=== PATIENT | female | born 1940 | race Caucasian/White ===

== ENCOUNTER 2017-07-24 10:16 | Day surgery (SDC) | payer MEDICARE, OTHER ==
[~2017-07-24] VITALS: Ht 157.5 cm; Wt 69.5 kg
[~2017-07-24 10:16] MED LIST: DONE10TA7 PO; ESOM40CA PO; GLUC-111 PO; LEVE250T5 PO; RANI150T8 PO; SERT100T PO; TIZA2TAB PO
[2017-07-24] MEDS ORDERED: LACTATED RINGERS 1,000 ML IV SCH (10:39)
[2017-07-24 10:42] VITALS: BP 150/84
[2017-07-24] MEDS ORDERED: EPINEPHRINE SYRINGE 0.1 MG/ML, 10ML ONE (12:03)
[2017-07-24] MEDS ORDERED: INDOCYANINE GREEN 25 MG VIAL ONE (12:04)
[2017-07-24] MEDS ORDERED: PROPOFOL 10 MG/ML, 20ML ONE (12:36)
[2017-07-24] MEDS ORDERED: PROPOFOL 10 MG/ML, 50ML ONE (12:36)
[2017-07-24] MEDS ORDERED: GLUCAGON 1 MG ONE (12:47)
[2017-07-24] MEDS ORDERED: ONDANSETRON 2MG/ML, 2ML IVPush PRN (13:00)
[2017-07-24] MEDS ORDERED: FENTANYL PF 100 MCG/2ML IV PRN (13:00)
== END 2017-07-24 15:00 ==
LOC: OUT 10:16
PROVIDERS: ATTEND Internal Medicine
DX: D13.2 Benign neoplasm of duodenum (principal); F32.9 Major depressive disorder, single episode, unspecified; K21.9 Gastro-esophageal reflux disease without esophagitis; K22.70 Barrett's esophagus without dysplasia; Z90.49 Acquired absence of other specified parts of digestive tract; Z90.710 Acquired absence of both cervix and uterus; Z98.890 Other specified postprocedural states; Z88.5 Allergy status to narcotic agent; Z87.39 Personal history of other diseases of the musculoskeletal system and connective tissue
CPT/HCPCS: 43238; 88172; 88173; 88177; 88305; 93005; J2704; J1610